=== PATIENT | female | born 1985 | race American Indian/Alaskan Native ===

== ENCOUNTER 2017-11-24 13:15 | Emergency (ER) | payer MEDICAID, OTHER ==
[2017-11-24 13:21] VITALS: BMI 39.6
[2017-11-24] MEDS ORDERED: Sodium Chloride 0.9% 1,000 ML IV STA (13:39)
--- NOTE | 2017-11-24 13:41 | ED PDOC ---
Arrival/HPI - General Chief Complaint: Abdominal Pain Time Seen by Provider: 11/24/17 13:29 Historian: Patient - History of Present Illness Narrative History of Present Illness (Text): 11/24/17 13:38 32 year old female, whose past medical history A0, who presents to the emergency department complaining of abdominal pain, sore breasts, and sore throat x 3 days. Patient notes the first day of LKMP was October 07, 2017. Patient notes she took a test, which was positive. Patient denies any fevers, chills, chest pain, shortness of breath, abdominal pain, vomiting, diarrhea, back pain, neck pain, headache, dizziness, or any other complaint. PMD: Dr. Adams HYGIENE TEACHER: Dr. Hung Time/Duration: < week Symptom Onset: Gradual Symptom Course: Unchanged Activities at Onset: Light Past Medical History - Provider Review Nursing Documentation Reviewed: Yes - Infectious Disease Hx of Infectious Diseases: None - Psychiatric Hx Substance Use: No - Surgical History Hx Section: Yes (x2) - Anesthesia Hx Anesthesia: Yes Hx Anesthesia Reactions: No Hx Malignant Hyperthermia: No - Suicidal Assessment Feels Threatened In Home Enviroment: No Family/Social History - Physician Review Nursing Documentation Reviewed: Yes Family/Social History: Unknown Family HX Smoking Status: Never Smoked Hx Alcohol Use: Yes Frequency of alcohol use: Socially Hx Substance Use: No Allergies/Home Meds Allergies/Adverse Reactions: Allergies No Known Allergies Allergy (Verified 07/25/15 16:02) Review of Systems - Physician Review All systems were reviewed & negative as marked: Yes - Review of Systems Constitutional: Normal Eyes: Normal ENT: Sore Throat Respiratory: Normal. absent: SOB, Cough Cardiovascular: Normal. absent: Chest Pain Gastrointestinal: Abdominal Pain, Nausea. absent: Diarrhea, Vomiting Genitourinary Female: Normal. absent: Dysuria, Frequency, Hematuria Musculoskeletal: Normal. absent: Back Pain, Neck Pain Skin: Normal. absent: Rash Neurological: Normal. absent: Headache, Dizziness Endocrine: Normal Hemo/Lymphatic: Normal Psychiatric: Normal Physical Exam Vital Signs Reviewed: Yes Vital Signs Temp Pulse Resp BP Pulse Ox 11/24/17 17:08 98 F 76 16 108/55 L 98 11/24/17 15:50 68 18 108/65 99 11/24/17 13:21 97.9 F 70 18 100/68 100 Temperature: Afebrile Blood Pressure: Normal Pulse: Regular Respiratory Rate: Normal Appearance: Positive for: Well-Appearing, Non-Toxic, Comfortable Pain Distress: None Mental Status: Positive for: Alert and Oriented X 3 - Systems Exam Head: Present: Atraumatic, Normocephalic Pupils: Present: PERRL Extroacular Muscles: Present: EOMI Conjunctiva: Present: Normal Mouth: Present: Moist Mucous Membranes Neck: Present: Normal Range of Motion. No: Meningeal Signs, MIDLINE TENDERNESS , Paraspinal Tenderness Respiratory/Chest: Present: Clear to Auscultation, Good Air Exchange. No: Respiratory Distress, Accessory Muscle Use Cardiovascular: Present: Regular Rate and Rhythm, Normal S1, S2. No: Murmurs Abdomen: Present: Tenderness (epigastric and Upper quadrant tenderness), Guarding. No: Distention, Peritoneal Signs, Rebound Back: Present: Normal Inspection. No: CVA Tenderness, Midline Tenderness, Paraspinal Tenderness Upper Extremity: Present: Normal Inspection. No: Cyanosis, Edema Lower Extremity: Present: Normal Inspection. No: Edema Neurological: Present: GCS=15, CN II-XII Intact, Speech Normal Skin: Present: Warm, Dry, Normal Color. No: Rashes Psychiatric: Present: Alert, Oriented x 3, Normal Insight, Normal Concentration Medical Decision Making ED Course and Treatment: 11/24/17 13:43 Impression: 32 year old female presents to the emergency department complaining of abdominal pain, sore breasts, and a sore throat x 3 days. DDx: Threatened Ab vs Demise; Gastritis vs Pancreatitis Plan: -- Labs -- Pepcid -- Zofran -- Sodium Chloride -- Reassess and disposition Progress Notes 11/24/17 16:23 Accession No. : [id number] Patient Name / ID : MARILEE RESENDIZ / [id number] HISTORY: Abdominal pain. Cholecystitis is suspected IMPRESSION: Unremarkable abdominal sonogram. 11/24/17 17:23 Accession No. : [id number] Patient Name / ID : MARILEE Martin / [id number] Report Date : 11/24/2017 16:24:14 My Comment : ADDENDUM: Follow-up recommendations: Repeat obstetrical ultrasound for documentation of cardiac viability/ reliable cardiac rate. [ Addendum Report Added by Erickson Drake MD at 11/24/2017 17:06:25 ] PROCEDURE: First trimester ultrasound Beta HCG results: 35391.02 HISTORY: First trimester presenting with abd pain; FDLMP IMPRESSION: 1. Well-formed gestational sac, pole and yolk sac identified. Faint cardiac activity is seen with perry the ability to calculated reliable cardiac rate. 2. Bilateral adnexal cysts. 3. Solitary uterine fibroid. US reports reviewed in detail with patient. She will follow up with her OBGYN, which she has, in 2-3days. She was advised to return to the ED if she develops worsening abdominal pain, vaginal bleeding, or any worsening symptom or concern. - Lab Interpretations Lab Results: 11/24/17 14:00 11/24/17 14:00 Lab Results 11/24/17 14:30: Blood Type Confirm A POSITIVE 11/24/17 14:00: Blood Type A POSITIVE, Antibody Screen Negative, BBK History Checked No verified bt 11/24/17 14:00: Beta HCG, Quant 17077.00 H 11/24/17 14:00: Sodium 144, Potassium 3.5 L, Chloride 110 H, Carbon Dioxide 25, Anion Gap 12, BUN 8, Creatinine 0.6 L, Est GFR ( Amer) > 60, Est GFR (Non -Af Amer) > 60, Random Glucose 85, Calcium 8.8, Magnesium 2.1, Total Bilirubin 0.5, AST 22, ALT 28, Alkaline Phosphatase 43, Total Protein 6.9, Albumin 3.6, Globulin 3.3, Albumin/Globulin Ratio 1.1, Lipase 53 11/24/17 14:00: PT 11.2, INR 0.98, APTT 26.1 11/24/17 14:00: WBC 9.4, RBC 4.25, Hgb 12.0, Hct 36.7, MCV 86.4, MCH 28.2, MCHC 32.7, RDW 14.9 H, Plt Count 302, MPV 10.0, Gran % 60.3, Lymph % (Auto) 30.7, C[place] % (Auto) 6.2 H, Eos % (Auto) 2.7, Baso % (Auto) 0.1, Gran # 5.65, Lymph # ( Auto) 2.9, [place] # (Auto) 0.6, Eos # (Auto) 0.3, Baso # (Auto) 0.01 - RAD Interpretation Radiology Orders: 11/24/17 13:50 OB TRANSVAGINAL [US] Stat 11/24/17 13:51 ABDOMEN COMPLETE [US] Stat - Medication Orders Current Medication Orders: Discontinued Medications Famotidine (Pepcid) 20 mg IVP STAT STA Stop: 11/24/17 13:40 Last Admin: 11/24/17 14:00 Dose: 20 mg IVP Administration Document 11/24/17 14:00 SONYA (Rec: 11/24/17 14:00 SONYA GODINEZ-PC) Charges for Administration # of IVP Administrations 1 Sodium Chloride (Sodium Chloride 0.9%) 1,000 mls @ 1,000 mls/hr IV .Q1H STA Stop: 11/24/17 14:38 Last Admin: 11/24/17 13:59 Dose: 1,000 mls/hr eMAR Start Stop Document 11/24/17 13:59 SONYA (Rec: 11/24/17 13:59 SONYA GODINEZ-PC) Intravenous Solution Start Date 11/24/17 Start Time 13:59 End Date 11/24/17 End time 15:01 Total Infusion Time 62 Ondansetron HCl (Zofran Inj) 4 mg IVP STAT STA Stop: 11/24/17 13:40 Last Admin: 11/24/17 13:59 Dose: 4 mg IVP Administration Document 11/24/17 13:59 SONYA (Rec: 11/24/17 13:59 SONYA GODINEZ-PC) Charges for Administration # of IVP Administrations 1 Potassium Chloride (K-Dur 20 Meq Er Tab) 40 meq PO STAT STA Stop: 11/24/17 14:31 Last Admin: 11/24/17 16:06 Dose: 40 meq - Scribe Statement The provider has reviewed the documentation as recorded by the Scribe Nasreen Valencia All medical record entries made by the Scribe were at my direction and personally dictated by me. I have reviewed the chart and agree that the record accurately reflects my personal performance of the history, physical exam, medical decision making, and the department course for this patient. I have also personally directed, reviewed, and agree with the discharge instructions and disposition. Disposition/Present on Arrival - Present on Arrival Any Indicators Present on Arrival: No History of DVT/PE: No History of Uncontrolled Diabetes: No Urinary Catheter: No History of Decub. Ulcer: No History Surgical Site Infection Following: None - Disposition Have Diagnosis and Disposition been Completed?: Yes Diagnosis: Abdominal pain, Threatened Disposition: HOME/ ROUTINE Disposition Time: 17:00 Patient Plan: Discharge Patient Problems: Current Active Problems Problem Status Onset Abdominal pain Acute Threatened Acute Condition: IMPROVED Discharge Instructions (ExitCare): Acute Abdomen (Belly Pain), Adult (DC), Threatened Miscarriage (DC) Additional Instructions: ASTRID HUNT, thank you for letting us take care of you today. Your provider was Nelson Moreno DO and you were treated for Abdominal in . The emergency medical care you received today was directed at your acute symptoms. If you were prescribed any medication, please fill it and take as directed. It may take several days for your symptoms to resolve. Return to the Emergency Department if your symptoms worsen, vaginal bleeding, abdominal pain, if you do not improve, or if you have any other problems. Make sure to follow up with your OBGYN in 2-3days. Please contact your doctor or call one of the physicians/clinics you have been referred to that are listed on the Patient Visit Information form that is included in your discharge packet. Bring any paperwork you were given at discharge with you along with any medications you are taking to your follow up visit. Our treatment cannot replace ongoing medical care by a primary care provider outside of the emergency department. Thank you for allowing the [facility] team to be part of your care today. If you had an X-Ray or CT scan: A Radiologist will review the ED reading if any change in treatment is needed we will contact you. If you had a blood, urine, or wound culture: It will take several days for the results, if any change in treatment is needed we will contact you. If you had an STI test: It will take 48 hours for the results. Please call after 1 week if you have not heard back. Prescriptions: Famotidine [Pepcid] 20 mg PO DAILY #30 tab Referrals: Ricarda Burton MD [Primary Care Provider] - Follow up with primary Forms: [facility] ([place]), WORK NOTE
[2017-11-24 14:19] LABS: BASO # 0.01 K/mm3 (0.0-2.0); BASO % 0.1 % (0.0-3.0); EOS # 0.3 (0.0-0.7); EOS % 2.7 % (1.5-5.0); GRAN # 5.65 (1.4-6.5); GRAN % 60.3 % (50.0-68.0); LYMPH # 2.9 (1.2-3.4); LYMPH % 30.7 % (22.0-35.0); MEAN CELL VOLUME 86.4 fl (80.0-105.0); MEAN CORPUSCULAR HEMOGLOBIN 28.2 pg (25.0-35.0); MEAN CORPUSCULAR HGB CONC 32.7 g/dl (31.0-37.0); MONO # 0.6 (0.1-0.6); MONO % 6.2 % (1.0-6.0); RBC 4.25 10^6/uL (3.5-6.1); RED CELL DISTRIBUTION WIDTH 14.9 % (11.5-14.5); WHITE BLOOD COUNT 9.4 10^3/ul (4.5-11.0)
[2017-11-24 14:29] LABS: ALB/GLOB RATIO 1.1 (1.1-1.8); ALBUMIN 3.6 g/dL (3.0-4.8); ALT/SGPT 28 U/L (7-56); AST/SGOT 22 U/L (14-36); BLOOD UREA NITROGEN 8 mg/dL (7-21); CALCIUM 8.8 mg/dL (8.4-10.5); GFR AFRICAN-AMERICAN > 60; GFR NON-AFRICAN AMERICAN > 60; LIPASE 53 U/L (23-300)
[2017-11-24] MEDS ORDERED: Potassium Chloride 20 mEq ER Tab PO STA (14:30)
[2017-11-24 14:45] LABS: INR 0.98 (0.93-1.08); PROTHROMBIN TIME 11.2 SECONDS (9.4-12.5)
[2017-11-24 14:46] LABS: PARTIAL THROMBOPLASTIN TIME 26.1 Seconds (25.1-36.5)
--- NOTE | 2017-11-24 16:21 | US ---
HISTORY: Abdominal pain. Cholecystitis is suspected COMPARISON: None. TECHNIQUE: Sonographic evaluation of the abdomen. FINDINGS: LIVER: Measures 9.7 x 16.4 cm. Patent portal vein. Portal venous flow: Hepatopetal. Unremarkable echogenicity of the liver parenchyma. No mass. No intrahepatic bile duct dilatation. GALLBLADDER: Unremarkable. No gallstones. COMMON BILE DUCT: Measures 2.9 mm. No stones. No dilatation. PANCREAS: Unremarkable as visualized. No mass. No ductal dilatation. RIGHT KIDNEY: Measures 4.5 x 10.6cm. Normal echogenicity. No calculus, mass, or hydronephrosis. LEFT KIDNEY: Measures 4.9 x 10 pointcm. Normal echogenicity. No calculus, mass, or hydronephrosis. SPLEEN: Normal in size and contour. No mass. AORTA: No aneurysmal dilatation. IVC: Unremarkable. OTHER FINDINGS: None. IMPRESSION: Unremarkable abdominal sonogram.
--- NOTE | 2017-11-24 16:26 | US ---
PROCEDURE: First trimester ultrasound Beta HCG results: 75837.02 HISTORY: First trimester presenting with abd pain; [facility] COMPARISON: None available. TECHNIQUE: Standard protocol for this study/examination. FINDINGS: LMP: 10/07/2017 Prior examinations from the current : None TECHNIQUE: Real-time 2D imaging, duplex and color Doppler. FINDINGS: Cardiac activity: Cannot be documented with clarity Measurements: [place] rump length: 0.33 cm Gestational age based on CRL 6 weeks Gestational age 5 weeks 5 days based on gestational sac measurement 1.44 cm Gestational age derived from LMP: 6 weeks 6 days ABHIJIT based on LMP: 07/14/2018 ABHIJIT based on biometry: 07/21/2018 Gestational concordance documented Yolk sac identified Uterus: Unremarkable. Cervix: No Cervical abnormalities: Negative examination for cervical dilatation or effacement. Closed cervix. Subchorionic hemorrhage: None UTERUS: 6.2 x 8.7 x 11.5 cm. Location of fibroid and size: Anterior, fundal 2.8 x 2.9 x 3 cm ADNEXA: Right: 2.4 x 3.3 x 3.6 cm. Simple cyst 1.8 x 2 x 2.5 cm. Normal Doppler arterial waveform documented. Left: 2.5 x 2.7 x 3 cm. Simple cyst 3.1 x 3.4 x 5.7 Normal Doppler arterial waveform documented Fluid in the cul-de-sac: None IMPRESSION: 1. Well-formed gestational sac, pole and yolk sac identified. Faint cardiac activity is seen with perry the ability to calculated reliable cardiac rate. 2. Bilateral adnexal cysts. 3. Solitary uterine fibroid.
[2017-11-24 17:09] VITALS: BP 108/55; PULSE 76; RESP 16; TEMP 98; O2SAT 98
== END 2017-11-24 16:58 | disposition home or self-care (01) ==
LOC: ED 13:15
DX: O20.0 Threatened abortion (principal); Z3A.01 Less than 8 weeks gestation of pregnancy; R10.9 Unspecified abdominal pain
CPT/HCPCS: 76700; 76817; 80053; 83690; 83735; 84702; 85025; 85610; 85730; 86850; 86900; 96361; 96374; 96375; 99284; J2405; J7030

== ENCOUNTER 2018-10-08 15:06 | Emergency (ER) | payer SELFPAY ==
[2018-10-08 15:06] VITALS: BMI 39.6
[2018-10-08 15:27] VITALS: TEMP 99
[2018-10-08] MEDS ORDERED: Sodium Chloride 0.9% 1,000 ML IV STA (16:27)
[2018-10-08 17:19] LABS: BASO # 0.01 K/mm3 (0.0-2.0); BASO % 0.1 % (0.0-3.0); EOS # 0.1 (0.0-0.7); EOS % 1.2 % (1.5-5.0); HEMOGLOBIN 11.1 g/dL (12.0-16.0); LYMPH # 2.5 (1.2-3.4); LYMPH % 29.2 % (22.0-35.0); MEAN CELL VOLUME 87.5 fl (80.0-105.0); MEAN CORPUSCULAR HEMOGLOBIN 27.2 pg (25.0-35.0); MEAN CORPUSCULAR HGB CONC 31.1 g/dl (31.0-37.0); MEAN PLATELET VOLUME 9.4 fl (7.0-11.0); MONO # 0.6 (0.1-0.6); MONO % 7.2 % (1.0-6.0); RBC 4.08 10^6/uL (3.5-6.1); RED CELL DISTRIBUTION WIDTH 14.5 % (11.5-14.5); WHITE BLOOD COUNT 8.5 10^3/uL (4.5-11.0)
[2018-10-08 17:29] LABS: ALBUMIN 3.4 g/dL (3.0-4.8); BLOOD UREA NITROGEN 12 mg/dL (7-21); CALCIUM 9.2 mg/dL (8.4-10.5); GFR NON-AFRICAN AMERICAN > 60; LIPASE 67 U/L (23-300)
[2018-10-08 17:32] LABS: ALT/SGPT 27 U/L (7-56); AST/SGOT 34 U/L (14-36)
[2018-10-08 19:39] LABS: URINE BILIRUBIN NEGATIVE (NEGATIVE); URINE BLOOD SMALL (NEGATIVE); URINE GLUCOSE (UA) NEGATIVE (NEGATIVE); URINE LEUKOCYTE ESTERASE NEGATIVE Leu/uL (NEGATIVE); URINE PROTEIN NEGATIVE mg/dL (<30 mg/dL); URINE UROBILINOGEN 0.2 E.U./dL (<1 E.U./dL)
[2018-10-08 19:40] LABS: URINE APPEARANCE SLIGHT-CLOUDY (CLEAR); URINE COLOR YELLOW (YELLOW)
[2018-10-08 19:46] LABS: URINE BACTERIA MANY /hpf; URINE EPITHELIAL CELLS 0 - 2 /hpf (0-5)
[2018-10-08 19:50] VITALS: BP 116/72; PULSE 78; RESP 16; O2SAT 99
--- NOTE | 2018-10-08 19:55 | ED PDOC ---
Arrival/HPI - General Chief Complaint: Abdominal Pain Historian: Patient - History of Present Illness Narrative History of Present Illness (Text): 10/08/18 19:53 32 year old F with no significant pmh presents complains of lower abdominal pain w/mild diarrhea and x 2wks and dysuria. Patient reports she tolerates PO. Patient denies any fevers, chills, headache, dizziness, chest pain, shortness of breath, dyspnea on exertion, cough, diaphoresis, nausea, vomiting, back pain, neck pain, or any other complaint. Time/Duration: > week Symptom Onset: Sudden Symptom Course: Unchanged Activities at Onset: Light Context: Home Past Medical History - Provider Review Nursing Documentation Reviewed: Yes - Infectious Disease Hx of Infectious Diseases: None - Reproductive Menopause: No - Cardiac Hx Cardiac Disorders: No - Psychiatric Hx Substance Use: No - Surgical History Hx Section: Yes (x2) - Anesthesia Hx Anesthesia: Yes Hx Anesthesia Reactions: No Hx Malignant Hyperthermia: No - Suicidal Assessment Feels Threatened In Home Enviroment: No Family/Social History - Physician Review Nursing Documentation Reviewed: Yes Family/Social History: Unknown Family HX Smoking Status: Never Smoked Hx Alcohol Use: Yes Hx Substance Use: No Allergies/Home Meds Allergies/Adverse Reactions: Allergies No Known Allergies Allergy (Verified 07/25/15 16:02) Review of Systems - Physician Review All systems were reviewed & negative as marked: Yes - Review of Systems Constitutional: Normal Eyes: Normal ENT: Normal Respiratory: Normal Cardiovascular: Normal Gastrointestinal: Abdominal Pain (lower), Diarrhea. absent: Constipation, Nausea, Vomiting Genitourinary Female: Dysuria Musculoskeletal: Normal Skin: Normal Neurological: Normal Endocrine: Normal Hemo/Lymphatic: Normal Psychiatric: Normal Physical Exam Vital Signs Reviewed: Yes Vital Signs Temp Pulse Resp BP Pulse Ox 10/08/18 19:49 78 16 116/72 99 10/08/18 17:37 74 18 106/58 L 97 10/08/18 15:24 99 F 92 H 18 105/62 98 Temperature: Afebrile Blood Pressure: Normal Pulse: Regular Respiratory Rate: Normal Appearance: Positive for: Well-Appearing, Non-Toxic, Comfortable Pain Distress: Mild Mental Status: Positive for: Alert and Oriented X 3 - Systems Exam Head: Present: Atraumatic, Normocephalic Pupils: Present: PERRL Extroacular Muscles: Present: EOMI Conjunctiva: Present: Normal Mouth: Present: Moist Mucous Membranes Neck: Present: Normal Range of Motion Respiratory/Chest: Present: Clear to Auscultation, Good Air Exchange. No: Respiratory Distress, Accessory Muscle Use Cardiovascular: Present: Regular Rate and Rhythm, Normal S1, S2. No: Murmurs Abdomen: No: Tenderness, Distention, Peritoneal Signs Back: Present: Normal Inspection Upper Extremity: Present: Normal Inspection. No: Cyanosis, Edema Lower Extremity: Present: Normal Inspection. No: Edema Neurological: Present: GCS=15, CN II-XII Intact, Speech Normal Skin: Present: Warm, Dry, Normal Color. No: Rashes Psychiatric: Present: Alert, Oriented x 3, Normal Insight, Normal Concentration Medical Decision Making ED Course and Treatment: 10/08/18 19:55 Impression: 32 year old F presents complains of lower abdominal pain w/mild diarrhea and x 2wks and dysuria. Patient reports she tolerates PO. Plan: -- Ct Abd & Pelvis w/ contrast -- EKG -- Pepcid -- Zofran -- Urinalysis -- Reassess and disposition Prior Visits: Notes and results from previous visits were reviewed. Progress Notes: - Lab Interpretations Lab Results: Total Bilirubin 0.4 mg/dL (0.2-1.3) 10/08/18 17:11 AST 34 U/L (14-36) 10/08/18 17:11 ALT 27 U/L (7-56) 10/08/18 17:11 Alkaline Phosphatase 61 U/L (38-126) 10/08/18 17:11 Total Protein 6.6 g/dL (5.8-8.3) 10/08/18 17:11 Albumin 3.4 g/dL (3.0-4.8) 10/08/18 17:11 Globulin 3.2 gm/dL 10/08/18 17:11 Albumin/Globulin Ratio 1.0 (1.1-1.8) L 10/08/18 17:11 Lipase 67 U/L (23-300) 10/08/18 17:11 Urine Color Yellow (YELLOW) 10/08/18 19:20 Urine Appearance Slight-cloudy (CLEAR) 10/08/18 19:20 Urine pH 6.0 (4.7-8.0) 10/08/18 19:20 Ur Specific [place] 1.025 (1.005-1.035) 10/08/18 19:20 Urine Protein Negative mg/dL (<30 mg/dL) 10/08/18 19:20 Urine Glucose (UA) Negative mg/dL (NEGATIVE) 10/08/18 19:20 Urine Ketones Negative mg/dL (NEGATIVE) 10/08/18 19:20 Urine Blood Small (NEGATIVE) H 10/08/18 19:20 Urine Nitrate Positive (NEGATIVE) H 10/08/18 19:20 Urine Bilirubin Negative (NEGATIVE) 10/08/18 19:20 Urine Urobilinogen 0.2 E.U./dL (<1 E.U./dL) 10/08/18 19:20 Ur Leukocyte Esterase Negative Digna/uL (NEGATIVE) 10/08/18 19:20 Urine RBC 1 - 3 /hpf (0-2) H 10/08/18 19:20 Urine WBC 1 - 3 /hpf (0-6) 10/08/18 19:20 Ur Epithelial Cells 0 - 2 /hpf (0-5) 10/08/18 19:20 Urine Bacteria Many /hpf (NONE) 10/08/18 19:20 - RAD Interpretation Radiology Orders: 10/08/18 17:34 ABD & PELVIS IV CONTRAST ONLY [CT] Stat - Medication Orders Current Medication Orders: Discontinued Medications Famotidine (Pepcid) 20 mg IVP STAT STA Stop: 10/08/18 16:28 Last Admin: 10/08/18 17:36 Dose: 20 mg IVP Administration Document 10/08/18 17:36 BB (Rec: 10/08/18 17:36 [id number] Charges for Administration # of IVP Administrations 1 Sodium Chloride (Sodium Chloride 0.9%) 1,000 mls @ 1,000 mls/hr IV .Q1H STA Stop: 10/08/18 17:26 Last Admin: 10/08/18 17:35 Dose: 1,000 mls/hr eMAR Start Stop Document 10/08/18 17:35 BB (Rec: 10/08/18 17:35 [id number] Intravenous Solution Start Date 10/08/18 Start Time 17:35 Ondansetron HCl (Zofran Inj) 4 mg IVP STAT STA Stop: 10/08/18 16:28 Last Admin: 10/08/18 17:35 Dose: 4 mg IVP Administration Document 10/08/18 17:35 BB (Rec: 10/08/18 17:35 BB [id number]) Charges for Administration # of IVP Administrations 1 - Scribe Statement The provider has reviewed the documentation as recorded by the Scribe Lenora May All medical record entries made by the Scribe were at my direction and personally dictated by me. I have reviewed the chart and agree that the record accurately reflects my personal performance of the history, physical exam, medical decision making, and the department course for this patient. I have also personally directed, reviewed, and agree with the discharge instructions and disposition. Disposition/Present on Arrival - Present on Arrival Any Indicators Present on Arrival: No History of DVT/PE: No History of Uncontrolled Diabetes: No Urinary Catheter: No History of Decub. Ulcer: No History Surgical Site Infection Following: None - Disposition Have Diagnosis and Disposition been Completed?: Yes Diagnosis: Abdominal pain Disposition: HOME/ ROUTINE Disposition Time: 19:10 Condition: IMPROVED Discharge Instructions (ExitCare): Acute Abdomen (Belly Pain) Additional Instructions: ASTRID HUNT, thank you for letting us take care of you today. The emergency medical care you received today was directed at your acute symptoms. If you were prescribed any medication, please fill it and take as directed. It may take several days for your symptoms to resolve. Return to the Emergency Department if your symptoms worsen, do not improve, or if you have any other problems. Please contact your doctor or call one of the physicians/clinics you have been referred to that are listed on the Patient Visit Information form that is included in your discharge packet. Bring any paperwork you were given at discharge with you along with any medications you are taking to your follow up visit. Our treatment cannot replace ongoing medical care by a primary care provider outside of the emergency department. Thank you for allowing the [facility] team to be part of your care today. Follow up with your MEDICAL SCIENCE LIAISON doctor and your primary care doctor in 3-5 days for re- evaluation and further management. Prescriptions: Ibuprofen [Motrin] 600 mg PO Q6 PRN #20 tab PRN Reason: Pain, Moderate (4-7) Nitrofurantoin Macrocrystals [Macrobid] 100 mg PO BID #14 cap Ondansetron ODT [Zofran ODT] 4 mg PO Q8 PRN #15 odt PRN Reason: Nausea/Vomiting Referrals: Ricarda Burton MD [Primary Care Provider] - Follow up with primary Forms: [employer] (T[place]anian), SCHOOL NOTE
--- NOTE | 2018-10-08 21:55 | CT ---
Date of service: 10/08/2018 PROCEDURE: CT Abdomen and Pelvis with contrast HISTORY: Lower abdominal pain. Normal white count without shift. Negative test (concurrent with this examination). COMPARISON: 11/24/2017. Abdominal ultrasound. TECHNIQUE: Intravenous contrast dose: 150 cc Omnipaque 350. Radiation dose: Total exam DLP = 1052.67 mGy-cm. This CT exam was performed using one or more of the following dose reduction techniques: Automated exposure control, adjustment of the mA and/or kV according to patient size, and/or use of iterative reconstruction technique. FINDINGS: LOWER THORAX: Unremarkable. LIVER: Unremarkable. No gross lesion or ductal dilatation. GALLBLADDER AND BILE DUCTS: Unremarkable. PANCREAS: Unremarkable. No gross lesion or ductal dilatation. SPLEEN: Unremarkable. ADRENALS: Unremarkable. No mass. KIDNEYS AND URETERS: Unremarkable. No hydronephrosis. No solid mass. VASCULATURE: Unremarkable. No aortic aneurysm. No atherosclerotic calcification or mural plaque present. BOWEL: Constipation without fecal impaction or obstruction. APPENDIX: A normal appendix is visualized in it's entirety. PERITONEUM: Trace fluid in the cul-de-sac. LYMPH NODES: Unremarkable. No enlarged lymph nodes. BLADDER: Unremarkable. REPRODUCTIVE: Cystic mass in the cul-de-sac midline. This would be an atypical location for a cysts, that however is the likely diagnosis. Heterogeneous anteverted uterus likely myomatous perhaps 1 possibly 2 fibroids. BONES: No acute fracture. OTHER FINDINGS: None. IMPRESSION: 1. Cystic pelvic mass midline adjacent to the rectosigmoid region. This measures 3 x 4.7 cm and is a likely adnexal cyst. 2. Trace free fluid identified in the pelvis/cul de sac. 3. Heterogeneous likely myomatous uterus. This is consistent with findings on a prior obstetrical ultrasound performed 11/24/2017 which indicated anterior and fundal fibroid measuring 3 x 2.8 x 2.9 cm. Communication of results: I discussed findings directly with the attending physician in the emergency department at 18:54.
--- NOTE | 2018-10-09 10:08 | CARD ---
APPROVED REPORT Date of service: 10/08/2018 EKG Measurement Heart [id number] <Conclusion> Normal sSinus rhythm Incomplete right bundle branch block Borderline ECG
== END 2018-10-08 19:49 | disposition home or self-care (01) ==
LOC: ED 15:06
DX: R10.30 Lower abdominal pain, unspecified (principal)
CPT/HCPCS: 74177; 80053; 81001; 81025; 83690; 83735; 85025; 87086; 87181; 93005; 96374; 96375; 99284; J2405; J7030; Q9967